=== PATIENT | female | born 1985 | race Caucasian/White ===

== ENCOUNTER 2016-08-20 18:53 | Emergency (ER) | payer MEDICAID ==
[~2016-08-20] VITALS: Ht 162.6 cm; Wt 63.5 kg
[~2016-08-20 18:53] MED LIST: LABE5VIA13 PO
[2016-08-20 18:55] VITALS: BP 161/89
[2016-08-20] MEDS ORDERED: KETOROLAC 30 MG/1 ML IM ONE (19:30)
[2016-08-20] MEDS ORDERED: KETOROLAC 30 MG/1 ML ONE (19:35)
== END 2016-08-20 20:55 | disposition home or self-care (01) ==
LOC: ED 20:45
DX: S20.219A Contusion of unspecified front wall of thorax, initial encounter (principal); S16.1XXA Strain of muscle, fascia and tendon at neck level, initial encounter; Y04.8XXA Assault by other bodily force, initial encounter; Y93.89 Activity, other specified; Y99.8 Other external cause status; Y92.009 Unspecified place in unspecified non-institutional (private) residence as the place of occurrence of the external cause; Z90.89 Acquired absence of other organs; Z88.0 Allergy status to penicillin
CPT/HCPCS: 70450; 71020; 72072; 72110; 72125; 96372; 99284; J1885